=== PATIENT | male | born 1990 | race Hispanic/Latino ===

== ENCOUNTER 2018-05-29 22:52 | Emergency (ER) | payer MEDICAID ==
[2018-05-29] MEDS ORDERED: LIDOCAINE HCL 1% 20 ML VIAL ONE (23:15)
[2018-05-29] MEDS ORDERED: ACETAMINOPHEN EXTRA STRENGTH 500 MG TABLET ONE (23:16)
[2018-05-29] MEDS ORDERED: TETANUS/DIPHTHERIA TOXOID [ADULT] 0.5 ML VIAL IM ONE (23:16)
[2018-05-30] MEDS ORDERED: CEPHALEXIN 500 MG CAPSULE ONE (01:39)
[2018-05-30] MEDS ORDERED: LEVOFLOXACIN 500 MG TABLET ONE (01:40)
[2018-05-30] MEDS ORDERED: DOXYCYCLINE HYCLATE 100 MG TABLET PO ONE (01:40)
== END 2018-05-30 02:10 | disposition home or self-care (01) ==
LOC: EDH 22:52
DX: S90.454A Superficial foreign body, right lesser toe(s), initial encounter (principal); K21.9 Gastro-esophageal reflux disease without esophagitis; Z72.0 Tobacco use; W45.8XXA Other foreign body or object entering through skin, initial encounter; Y93.89 Activity, other specified; Y92.89 Other specified places as the place of occurrence of the external cause; Y99.8 Other external cause status
CPT/HCPCS: 10120; 73630; 73660; 90471; 90714